=== PATIENT | male | born 1960 | race Caucasian/White ===

== ENCOUNTER → 2018-12-30 | Outpatient (CLI) | payer OTHER ==
[~2018-12-30] VITALS: Ht 177.8 cm; Wt 77.1 kg
[~2018-12-30] MED LIST: MULTIVITAMINS1 EAC7 PO; PRILOSEC 20 MG20 MG PO; ZOLOFT50 MG PO
--- NOTE | ~2018-12-30 | P ---
[facility] [place] [address] PROCEDURE REPORT Name: MARKY SUAREZ Room #: REG [facility]#: [id number] Admission: 12/30/18 ������������������ Attend Phys: Mack Sherman MD Discharge: ������������������ Date of : 60 Report #: [id number] THIS REPORT FOR: //name// CC: Mack Adan OUTPATIENT UPPER ENDOSCOPY REPORT BRIEF HISTORY: The patient is a 58-year-old male with a known Schatzki ring, which has been previously dilated and biopsied. There was no biopsy evidence of eosinophilic esophagitis. He presents with recurrent symptoms of solid food dysphagia. He reports symptoms are well controlled on 20 mg of omeprazole daily. PREOPERATIVE DIAGNOSIS: Recurrent solid food dysphagia. POSTOPERATIVE DIAGNOSES: 1. 10 mm gastric polyp, body of the stomach, lesser curvature. 2. Small hiatus hernia. 3. Grade B erosive esophagitis. 4. Moderately tight Schatzki ring. MEDICATIONS: Deep sedation with propofol for anesthesia. SPECIMEN: Gastric polyp. ESTIMATED BLOOD LOSS: 3 mL. PROCEDURE: EGD with snare polypectomy and Pruitt dilation. FINDINGS: Prior to propofol sedation, the procedure of upper endoscopy and dilation was reviewed with the patient as well as potential risks and its complications. He indicates he understands and desires to proceed. DESCRIPTION OF PROCEDURE: With the patient in left lateral decubitus position, the Olympus video endoscope was inserted in cervical esophagus under direct vision without difficulty. Examination of this organ through its entire length revealed normal esophageal mucosa into the distal esophagus. However, he was noted to have a moderately tight Schatzki ring. Once again, I could advance the tip of the scope in the mouth of the ring, but it was too small to allow complete forward advancement of the scope through the ring. In addition, the patient was noted to have erosions in the distal esophagus consistent with grade B esophagitis. The scope was withdrawn and the patient was dilated with passage of 50-Mongolian Pruitt dilator and passed without difficulty. The scope was then reintroduced and as expected, the ring was traumatized and a superficial mucosal tear was seen. The scope passed easily at this point to the ring into the stomach. Examination of the stomach on end view as well as retroflexed views [address] [address] PROCEDURE REPORT Name: MARKY SUAREZ Room #: REG [facility].#: [id number] Admission: 12/30/18 ������������������ Attend Phys: Mack Sherman MD Discharge: ������������������ Date of : 60 Report #: [id number] was completed. In the distal stomach, he was noted to have patchy erythema, but no ulcers or erosions. In the proximal stomach, he was noted to have a couple diminutive polyps. However, there was 1 single large polyp in the range of about 10 mm. This was removed by hot snare polypectomy and recovered with the Demarco net. Upon retroflexion, no mass lesions were seen in the cardia. The pylorus, duodenal bulb, and postbulbar sweep were inspected and noted to be unremarkable. At that point, the scope was slowly withdrawn and careful circumferential views confirmed the above findings. The patient tolerated the procedure well. CONDITION OF THE PATIENT UPON DISCHARGE: Following the procedure, the patient was drowsy, arousable and will be discharged home when fully ambulatory. INSTRUCTIONS TO THE PATIENT AND FAMILY AT THE TIME OF DISCHARGE: The patient's ring was dilated. He was last dilated about 3 years ago. He is to return on an as needed basis for dilation. Also, be important for him to control his reflux disease. He does have evidence of peptic esophagitis in spite of the fact he is taking 20 mg of omeprazole daily. We will increase his omeprazole to 40 mg once daily. If he can reduce, he may do so as tolerated, but should take dose to completely control his symptoms. He returned to the care of Dr. Marita Adan and return to see me as needed. ��������������������������������������������� ���������������������������������������� By: ��������������������������������������������� 1210 0419 Mack Sherman MD /chloe
--- NOTE | 2019-01-02 16:05 | PATH ---
[facility] [address] [place] [address] PATHOLOGY RPT PROCEDURE Name: MARKY SUAREZ [id number] ������������������ Admission: 12/30/18 ������������������ Date of : 60 Discharge: Report #: [id number] Path Case #: [id number] [facility] Accession Number: [id number] . 01 Material submitted: . stomach - GASTRIC POLYP . 01 Clinical history: . Pre-OP DX: Dysphagia Post-OP DX: Gastric polyp, Schatzki ring, esophagitis, hiatal hernia . 02 Diagnosis: Polyp, gastric polyp, endoscopic biopsy: - Fundic gland polyp. - Negative for dysplasia. (IUV/db; 01/02/2019) LBQ/01/02/2019 . 02 Electronically signed: . Ronda Reed MD, Pathologist NPI- [id number] . 01 Gross description: . Received in formalin labeled "Marky Suarez, BX gastric polyp," is a 0.8 x 0.6 x 0.6 cm polypoid piece of deleon soft tissue. The margin is inked and the tissue is sectioned perpendicular to the margin and submitted in its entirely in cassette A1. (TSD; 12/30/2018) TOB/TOB . 02 Pathologist provided ICD-10: K31.7 . 02 CPT . 220993 Specimen Comment: A courtesy copy of this report has been sent to Specimen Comment: [phone], . Specimen Comment: Report sent to / DR LAURENT Performed at: [address], [place], [place] [id number] MD Garry Gama MD Phone: [phone] Performed at: [address] [id number] MD Ronda Reed MD Phone: [phone]
== END | disposition home or self-care (01) ==
LOC: GI 12-23 13:30
DX: K31.7 Polyp of stomach and duodenum (principal); K22.2 Esophageal obstruction; K44.9 Diaphragmatic hernia without obstruction or gangrene; K21.0 Gastro-esophageal reflux disease with esophagitis; F32.9 Major depressive disorder, single episode, unspecified; Z98.890 Other specified postprocedural states; Z88.8 Allergy status to other drugs, medicaments and biological substances; Z79.899 Other long term (current) drug therapy; Z87.891 Personal history of nicotine dependence
CPT/HCPCS: 62110; 62900